=== PATIENT | male | born 1970 | race Caucasian/White ===

== ENCOUNTER 2018-08-23 15:38 | Outpatient (CLI) | payer BC ==
--- NOTE | 2018-08-24 03:59 | Diagnostic Imaging Report ---
[place] YUSU[place] [facility] [id number] [facility].[address] 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 No fracture. No dislocation. No soft tissue abnormality. 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
== END 2018-08-23 15:40 ==
LOC: RAD 15:38
PROVIDERS: ATTEND Family Medicine
DX: M79.644 Pain in right finger(s) (principal)
CPT/HCPCS: 73130